=== PATIENT | female | born 1950 | race Caucasian/White ===

== ENCOUNTER 2016-10-13 05:52 | Emergency (ER) | payer MEDICARE | END 2016-10-13 16:49 | disposition home or self-care (01) | LOC: D.ER 05:52 | DX: M54.5 Low back pain (principal); F31.9 Bipolar disorder, unspecified; I10 Essential (primary) hypertension; E11.9 Type 2 diabetes mellitus without complications; G62.9 Polyneuropathy, unspecified ==

== ENCOUNTER 2016-10-18 06:19 | Emergency (ER) | payer MEDICARE | END 2016-10-18 06:34 | disposition left against medical advice (07) | LOC: D.ER 06:19 | DX: M54.5 Low back pain (principal); F31.9 Bipolar disorder, unspecified; I10 Essential (primary) hypertension; E11.9 Type 2 diabetes mellitus without complications; G62.9 Polyneuropathy, unspecified ==

== ENCOUNTER → 2017-06-05 07:54 | Outpatient (CLI) | payer MEDICARE | END | disposition home or self-care (01) | LOC: D.MAMMO 05-24 13:00 | DX: Z12.31 Encounter for screening mammogram for malignant neoplasm of breast (principal) ==

== ENCOUNTER 2018-04-16 05:06 | Day surgery (SDC) | payer MEDICARE ==
[2018-04-15 10:15] LABS: HEMATOCRIT 44.8 % (36.0-48.0); HEMOGLOBIN 15.2 g/dL (12-16); MCH 30.6 pg (26.0-34.0); MCHC 33.9 g/dL (31.0-37.0); MCV 90.1 fL (80.0-100.0); MEAN PLATELET VOLUME 10.4 fL (7.4-10.4); RBC 4.97 10x6/uL (4.00-5.40); RDW 13.7 % (11.5-14.5); WBC 4.8 10x3/uL (4.8-10.8)
[2018-04-15 10:39] LABS: CALC OSMOLALITY 280 mosm/kg (275-300); CALCIUM 9.2 mg/dL (8.5-10.1); CARBON DIOXIDE 30.4 mmol/L (21.0-32.0); CHLORIDE - SERUM 104 mmol/L (98-107); CREATININE - SERUM 0.8 mg/dL (0.6-1.3); GLUCOSE 96 mg/dL (74-106); POTASSIUM - SERUM 4.3 mmol/L (3.5-5.1); SODIUM 140 mmol/L (136-145); UREA NITROGEN 17 mg/dL (7-18); eGFR NON AFRICAN AMERICAN 76 mL/min (90-120)
[~2018-04-16] VITALS: Ht 154.9 cm; Wt 89.4 kg
--- NOTE | ~2018-04-16 | OP ---
PATIENT NAME: CALOS MCGINNIS MEDICAL RECORD: [id number] :54 LOCATION:[facility] ADMISSION DATE: SURGEON: GREGORIO WEINBERG MD DATE OF OPERATION: 04/16/2018 PREOPERATIVE DIAGNOSES: Lumbar spinal stenosis and foraminal stenosis, L4-L5, left. PROCEDURE: Lumbar laminectomy, medial facetectomy, and foraminotomy L4-L5, left with METRx retractor. DESCRIPTION AND TECHNIQUE: After induction of general endotracheal anesthesia, the patient was rolled prone on a Paul frame. Lumbar spine was prepped and draped in usual sterile fashion. Fluoroscopic x-ray and spinal needle localized the L4-L5 interspace on the left side. A stab incision was created with a #11 blade. Series of dilators were used to advance a METRx retractor to the L4-L5 interspace on the left side. Level was confirmed with fluoroscopic x-ray. A microscope and [employer] [place] drill were used to perform a laminectomy, medial facetectomy, and foraminotomy at L4-L5 on the left. Hypertrophied ligamentum flavum was removed with Cloward rongeurs. This appeared to decompress the L5 nerve root well as well as the L4 nerve root within the foramen. Meticulous hemostasis was maintained throughout the wound. Wound was irrigated with copious amounts of Ancef irrigant solution. The fascia was closed with 2-0 Vicryl suture. Subdermal layer was closed with 3-0 Vicryl suture. The skin was closed with chikis. A sterile dressing was applied to the wound. The patient was awakened in good condition and taken to recovery. All counts were reported as correct. Estimated blood loss was minimal. TRANSINT:[id number] Voice Confirmation ID: [id number] DOCUMENT ID: [id number] GREGORIO WEINBERG MD at 2233 CC: [id number] DICTATION DATE: 04/22/18 1056 COMPENSATION BUSINESS PARTNER: 04/22/18 1142 [facility] [place] 04/16/[address] [address]
[~2018-04-16 05:06] MED LIST: ACTOS15 MG PO; ASPIRIN325 MG PO; BENADRYL25 MG PO; CELEBREX200 MG PO; CROLOM 4 % OPTH10 ML EACH EYE; EFFEXOR XR150 MG PO; GEODON60 MG PO; GLUCOTROL ER2.5 MG PO; LIPITOR40 MG PO; LITHIUM CARBON300 MG PO; MELATONIN10 M1 PO; NEURONTIN600 MG PO; NORVASC10 MG PO; RESTORIL15 MG PO; TYLENOL W/CODEI1 TAB; VITAMIN E400 UNI2 PO; ZESTRIL40 MG PO
[2018-04-16 06:54] VITALS: BP 130/82; Ht 154.9 cm; Wt 89.4 kg
== END 2018-04-16 14:00 | disposition home or self-care (01) ==
LOC: D.OPS 05:06 → D.PAN 07:30 → D.OPS 07:30
PROVIDERS: Anesthesiology
DX: M48.061 Spinal stenosis, lumbar region without neurogenic claudication (principal); Z01.812 Encounter for preprocedural laboratory examination

== ENCOUNTER 2019-04-21 08:00 | Outpatient (CLI) | payer MEDICARE ==
[2018-04-16 06:54] VITALS: BMI 37.3
== END 2019-04-21 23:59 | disposition home or self-care (01) ==
LOC: D.MAMMO 08:00
PROVIDERS: ATTEND Emergency Medicine
DX: Z12.31 Encounter for screening mammogram for malignant neoplasm of breast (principal)